=== PATIENT | female | born 1965 | race Asian ===

== ENCOUNTER 2019-07-24 05:34 | Emergency (ER) | payer OTHER ==
[~2019-07-24] VITALS: Ht 162.6 cm; Wt 59.0 kg
[2019-07-24 05:45] VITALS: BP 139/74
--- NOTE | 2019-07-24 05:45 | NUR ---
ED Nurse Note: Patient brought in by ambulance from home c/o fall at occured 0500. Pt stated she fell in the bathroom, fell from chair height and hit the back of the head. Pt denies loss of consciousness. Pt denies being on blood thinners. Patient complain of headache 06/02. AAO x4, VSS at this time, skin is warm to touch.
--- NOTE | 2019-07-24 05:55 | Emergency Room Report ---
History of Present Illness General Chief Complaint: Multiple Trauma/Fall Source: Patient Present Illness HPI 53-year-old Pashto female who presents with a fall and head injury. She got up to use the restroom and tripped over a chair and fell and hit her head. Did not pass out. She sustained a laceration to the back of the scalp. Complained of pain in that area. No fever chills but no nausea no vomiting. No syncope. Allergies: Coded Allergies: No Known Allergies (Unverified , 07/24/19) Patient History Past Medical History: see triage record, old chart reviewed Past Surgical History: none Pertinent Family History: none Social History: Denies: smoking Last Menstrual Period: unk Now: No Immunizations: other Reviewed Nursing Documentation: PMH: Agreed; PSxH: Agreed Nursing Documentation-PMH Past Medical History: No Stated History Review of Systems Eye: Denies: eye pain, blurred vision ENT: Denies: ear pain, nose congestion, throat swelling Respiratory: Denies: cough, shortness of breath Cardiovascular: Denies: chest pain, palpitations Gastrointestinal: Denies: abdominal pain, diarrhea, nausea, vomiting Musculoskeletal: Denies: back pain, joint pain Skin: Denies: rash Neurological: Denies: headache, numbness Endocrine: Denies: increased thirst, increased urine Hematologic/Lymphatic: Denies: easy bruising All Other Systems: negative except mentioned in HPI Physical Exam Vital Signs Date Time Temp Pulse Resp B/P (MAP) Pulse Ox O2 Delivery O2 Flow Rate FiO2 07/24/19 05:39 97.9 64 16 139/74 (95) 98 Room Air Vitals normal Sp02 EP Interpretation: reviewed, normal General Appearance: well appearing, no apparent distress, alert Head: normocephalic, other - 4 cm left occipital scalp laceration. No foreign body. Eyes: bilateral eye PERRL, bilateral eye EOMI ENT: hearing grossly normal, normal pharynx Neck: full range of motion, supple, no meningismus Respiratory: chest non-tender, lungs clear, normal breath sounds Cardiovascular #1: regular rate, rhythm, no murmur Gastrointestinal: normal bowel sounds, non tender, no mass, no organomegaly, no bruit, non-distended Musculoskeletal: back normal, gait/station normal, normal range of motion Psychiatric: mood/affect normal Procedures Laceration/Wound Repair Laceration/Wound Repair : Consent: Verbal Wound Location: head Wound's Depth, Shape: linear Wound Length (cm): 4 Wound Repaired With: shawn Patient Tolerated: Well Complications: None Progress I placed 8 shawn. Total procedure without any problem. Medical Decision Making Diagnostic Impression: Primary Impression: Head injury, acute Qualified Codes: S09.90XA - Unspecified injury of head, initial encounter Additional Impression: Occipital scalp laceration Qualified Codes: S01.01XA - Laceration without foreign body of scalp, initial encounter ER Course Patient presents with a fall, mechanical in nature with scalp laceration. No evidence of any bleed on the CT scan. If official reading is negative patient will be discharged home. CT/MRI/US Diagnostic Results CT/MRI/US Diagnostic Results : Imaging Test Ordered: CT head Impression Per radiologist negative Last Vital Signs Date Time Temp Pulse Resp B/P (MAP) Pulse Ox O2 Delivery O2 Flow Rate FiO2 07/24/19 05:39 97.9 64 16 139/74 (95) 98 Room Air Status: improved Disposition: HOME, SELF-CARE Condition: Stable Scripts Ibuprofen* (MOTRIN*) 600 Mg Tablet 600 MG ORAL THREE TIMES A DAY, #30 TAB 0 Refills Prov: Spencer San MD 07/24/19 Additional Instructions: Follow-up your doctor in 7 days. Shawn out in 7 days. Return if symptoms worsen. Spencer San MD Jul 24, 2019 05:55
[2019-07-24] MEDS ORDERED: Acetaminophen 500mg (ES) tab ORAL ONE (06:00)
--- NOTE | 2019-07-24 06:02 | NUR ---
ED Nurse Note: Patient was medicated, went for CT
--- NOTE | 2019-07-24 06:26 | NUR ---
ED Nurse Note: Patient is back from CT.
[2019-07-24] MEDS ORDERED: IBUPROFEN600 MG ORAL (06:36)
--- NOTE | 2019-07-24 07:16 | Diagnostic Imaging Report ---
Indications: Head trauma, pain, fell and hit occiput with ecchymosis and laceration Technique: Spiral acquisitions obtained through the brain. Angled axial and coronal 5 x 5 mm slices were reconstructed. Total dose length product 1591 mGycm. CTDI vol(s) 68 mGy. Dose reduction achieved using automated exposure control Comparison: None. Findings: No acute intracranial hemorrhage or edema. No mass effect nor midline shift. Normal schaeffer-white differentiation. Normal size ventricles and extra-axial CSF spaces. There is a left occipital scalp hematoma with overlying skin shawn. No underlying calvarial injury demonstrated. There is bilateral maxillary and ethmoid and sphenoid sinus mucosal disease. The mastoids are clear. Impression: Negative for acute intracranial bleed or mass effect Left occipital scalp hematoma with evidence of overlying laceration, status post stapling This agrees with the preliminary interpretation provided overnight by [facility] service. The CT scanner at [facility] is accredited by the [employer] and the scans are performed using protocols designed to limit radiation exposure to as low as reasonably achievable to attain images of sufficient resolution adequate for diagnostic evaluation.
[2019-07-24 07:22] VITALS: BP 139/74
--- NOTE | 2019-07-24 07:23 | NUR ---
ED Nurse Note: Pt cleared by health care Provider for discharge. DC instructions/prescription was given and explained to pt and verbalized understanding of teachings. All medical deviecs such as ID band removed. Pt is AAO x4, ambulatory and left with all personal belongings.
== END 2019-07-24 07:23 | disposition home or self-care (01) ==
LOC: EDBD 05:34 → EMR 05:52
DX: S01.01XA Laceration without foreign body of scalp, initial encounter (principal); W01.0XXA Fall on same level from slipping, tripping and stumbling without subsequent striking against object, initial encounter; Y92.9 Unspecified place or not applicable
CPT/HCPCS: 12002; 70450; Z7502; 99284